=== PATIENT | female | born 1955 | race Caucasian/White ===

== ENCOUNTER → 2016-07-15 | Outpatient (CLI) | payer OTHER ==
[~2016-07-15] MED LIST: ACET-1600 PO; ANAS1TAB PO; ASPI-650 PO; CELEBREX PO; DENO60DI INJ; HYDR-3240 PO; LOSA50TA6 PO
== END | disposition home or self-care (01) ==
LOC: CFH 08:00
PROVIDERS: ATTEND Specialist
DX: C50.912 Malignant neoplasm of unspecified site of left female breast (principal)
CPT/HCPCS: 77080

== ENCOUNTER → 2020-01-16 | Outpatient (CLI) | payer OTHER ==
[~2020-01-16] MED LIST changes: +HYDROCHLOROTH12.5 MG PO; +IRBE300T8 PO; +LOSA50TA14 PO; -LOSA50TA6 PO
[2020-01-16 12:05] LABS: BASOPHILS % (AUTO) 1 % (0-1); EOSINOPHILS % (AUTO) 1 % (1-7); LYMPHOCYTES % (AUTO) 30 % (22-44); MEAN CORPUSCULAR HEMOGLOBIN 32.9 pg (27.0-34.8); MEAN PLATELET VOLUME 8.5 fL (7.4-10.4); MONOCYTES % (AUTO) 11 % (2-9); NEUTROPHILS % (AUTO) 58 % (42-75); PLATELET COUNT 272 x10^3/uL (130-400); RED BLOOD COUNT 4.31 x10^6/uL (3.82-5.3); RED CELL DISTRIBUTION WIDTH 13.1 % (9.6-15.2)
[2020-01-16 12:07] LABS: MD NO
[2020-01-16 12:13] LABS: ALBUMIN 3.9 g/dL (3.4-5.0); ANION GAP 5 mmol/L (5-15); CALCIUM 9.5 mg/dL (8.5-10.1); CHLORIDE 103 mmol/L (98-107)
[2020-01-16 12:19] LABS: ALANINE AMINOTRANSFERASE 68 U/L (12-78); ALKALINE PHOSPHATASE 77 U/L (45-117); BILIRUBIN,TOTAL 0.5 mg/dL (0.2-1.0); CREATININE 0.91 mg/dL (0.55-1.02); TOTAL PROTEIN 7.7 g/dL (6.4-8.2)
== END | disposition home or self-care (01) ==
LOC: STAR 10:28
PROVIDERS: ATTEND Obstetrics & Gynecology
DX: Z01.812 Encounter for preprocedural laboratory examination (principal); Z20.828 Contact with and (suspected) exposure to other viral communicable diseases; Z80.41 Family history of malignant neoplasm of ovary; Z85.3 Personal history of malignant neoplasm of breast
CPT/HCPCS: 36415; 71046; 80053; 84702; 85025; 87635; 93005

== ENCOUNTER 2020-01-21 05:35 | Day surgery (SDC) | payer OTHER ==
[~2020-01-21] VITALS: Ht 172.7 cm; Wt 85.0 kg
[2020-01-21] MEDS ORDERED: LACTATED RINGERS 1,000 ML IV STA (06:22)
[2020-01-21] MEDS ORDERED: CHLORHEXIDINE 15 ML UDC MM STA (06:22)
[2020-01-21 06:24] VITALS: BP 123/84
[2020-01-21] MEDS ORDERED: CHLORHEXIDINE 15 ML UDC ONE (06:30)
[2020-01-21] MEDS ORDERED: BUPIVACAINE/PF 0.25% ONE (06:44)
[2020-01-21] MEDS ORDERED: EPINEPHRINE 1 MG/ML, 1ML ONE (06:44)
[2020-01-21] MEDS ORDERED: MIDAZOLAM 1 MG/ML, 2ML ONE (06:52)
[2020-01-21] MEDS ORDERED: FENTANYL PF 100 MCG/2ML ONE (06:52)
[2020-01-21] MEDS ORDERED: LACTATED RINGERS 1,000 ML IV SCH (07:00)
[2020-01-21] MEDS ORDERED: PHENYLEPHRINE 10 MG/ML ONE (07:27)
[2020-01-21] MEDS ORDERED: ROCURONIUM 10 MG/ML,10ML ONE (07:27)
[2020-01-21] MEDS ORDERED: EPHEDRINE 50 MG/ML, 1ML ONE (07:27)
[2020-01-21] MEDS ORDERED: HYDROmorphone 1 MG/ML, 1ML INJ IVPush PRN (07:30)
[2020-01-21] MEDS ORDERED: OXYcodone 5 MG/5 ML ORAL.SOL UDC PO PRN (07:30)
[2020-01-21] MEDS ORDERED: PROMETHAZINE 25 MG/ML, 1ML IVPush PRN (07:30)
[2020-01-21] MEDS ORDERED: FENTANYL PF 100 MCG/2ML IV PRN (07:30)
[2020-01-21] MEDS ORDERED: DIPHENHYDRAMINE 50 MG/ML, 1ML IVPush PRN (07:30)
[2020-01-21] MEDS ORDERED: HYDROcodone/APAP 7.5-325MG/15ML UDC PO PRN (07:30)
[2020-01-21] MEDS ORDERED: MEPERIDINE/PF 25MG/0.5ML IVPush PRN (07:30)
[2020-01-21] MEDS ORDERED: GLYCOPYRROLATE 0.2MG/1ML, 5ML ONE (08:35)
[2020-01-21] MEDS ORDERED: DEXAMETHASONE 4 MG/ML, 1ML ONE (08:35)
[2020-01-21] MEDS ORDERED: NEOSTIGMINE 1 MG/ML, 10ML ONE (08:35)
[2020-01-21] MEDS ORDERED: SUCCINYLCHOLINE 20 MG/ML, 10ML ONE (08:35)
[2020-01-21] MEDS ORDERED: CEFAZOLIN 1,000 MG ONE (08:35)
[2020-01-21] MEDS ORDERED: PROPOFOL 10 MG/ML, 20ML ONE (08:35)
[2020-01-21] MEDS ORDERED: ONDANSETRON 2MG/ML, 2ML ONE (08:35)
== END 2020-01-21 11:20 | disposition home or self-care (01) ==
LOC: OUT 05:35
PROVIDERS: ATTEND Obstetrics & Gynecology
DX: Z40.02 Encounter for prophylactic removal of ovary(s) (principal); N83.312 Acquired atrophy of left ovary; N83.311 Acquired atrophy of right ovary; N83.8 Other noninflammatory disorders of ovary, fallopian tube and broad ligament; N94.89 Other specified conditions associated with female genital organs and menstrual cycle; N73.6 Female pelvic peritoneal adhesions (postinfective); I10 Essential (primary) hypertension; Z85.3 Personal history of malignant neoplasm of breast; Z90.12 Acquired absence of left breast and nipple; Z91.040 Latex allergy status; Z91.048 Other nonmedicinal substance allergy status; Z96.649 Presence of unspecified artificial hip joint; Z80.41 Family history of malignant neoplasm of ovary; Z82.49 Family history of ischemic heart disease and other diseases of the circulatory system
CPT/HCPCS: 58661; 88305; J0171; J0330; J0690; J1100; J2250; J2370; J2405; J2704; J2710; J3010; J7120